=== PATIENT | female | born 1960 | race African-American/Black ===

== ENCOUNTER 2018-08-12 05:58 | Day surgery (SDC) | payer MEDICAID, MEDICARE ==
--- NOTE | 2018-08-09 10:42 | Opthalmology H&P ---
Ophthalmology H&P H&P Chief Complaint: decreased vision in right eye HPI Vision Affects Ability to: read, manage personal affairs, other HPI Narrative Blurry Vision Exam Visual Acuity: OD 20/125 OS 20/25 Tension: OD 16 OS 19 Eye Exam: normal OU: external exam, palpebral fissure-width, marginal reflex distance, levator function, corneas, anterior chambers, fundus exam; findings: lens - NS Cataract OU Assessment/Plan Treatment Plan: cataract extraction w/ lens implant Goals of Treatment: improvement of vision, enhance quality of life Attestation Attestation The risks and benefits of the surgery as well as alternative procedures were explained to the patient in detail. Benjamin Luke MD Aug 09, 2018 10:42
--- NOTE | 2018-08-09 10:43 | Pre-Procedure Note/Attestation ---
Pre-Procedure Note/Attestation Complete Prior to Procedure Planned Procedure: right Procedure Narrative: Cataract Extraction With Intraocular Lens Implant Right Eye Indications for Procedure Pre-Operative Diagnosis: Nuclear Sclerotic Cataract Right Eye Attestation I attest that I discussed the nature of the procedure; its benefits; risks and complications; and alternatives (and the risks and benefits of such alternatives ), prior to the procedure, with the patient (or the patient's legal client care representative). I attest that, if there was a reasonable possibility of needing a blood transfusion, the patient (or the patient's legal client care representative) was given the [facility] standardized written summary, pursuant to the Javi Kiah Blood Safety Act ([place] Health and Safety Code # 1645, as amended). I attest that I re-evaluated the patient just prior to the surgery and that there has been no change in the patient's H&P, except as documented below: Benjamin Luke MD Aug 09, 2018 10:43
[~2018-08-12] VITALS: Ht 144.8 cm; Wt 45.4 kg
[2018-08-12] VITALS (11 sets, daily range): BP systolic 107–151; BP diastolic 58–85
[2018-08-12] MEDS ORDERED: Dexamethasone 4mg/ml vial ONE (07:00)
[2018-08-12] MEDS ORDERED: Maxitrol Opth Oint 3.5gm ONE (07:00)
[2018-08-12] MEDS ORDERED: Pilocarpine 1% Opth 15ml Soln ONE (07:00)
[2018-08-12] MEDS ORDERED: Tetracaine 0.5% Opth 4ml Soln RIGHT EYE ONE (07:00)
[2018-08-12] MEDS ORDERED: Proparacaine 0.5% Opth Soln 15ml RIGHT EYE ONE (07:00)
[2018-08-12] MEDS ORDERED: Pred Forte 1% Opth Susp 1ml ONE (07:00)
[2018-08-12] MEDS ORDERED: Akten 3.5% 1ml Btl RIGHT EYE ONE (07:00)
[2018-08-12] MEDS: Tobramycin Op Soln 0.3% 5ml RIGHT EYE SCH ×3 (07:47→08:03)
[2018-08-12] MEDS: Tropicamide 1% Opth 15ml Soln RIGHT EYE SCH ×3 (07:47→08:03)
[2018-08-12] MEDS: Phenylephrine 10% Opth Soln 5ml RIGHT EYE SCH ×3 (07:47→08:03)
[2018-08-12] MEDS: Diclofenac Sod 0.1% Op Soln RIGHT EYE SCH ×3 (07:47→08:03)
[2018-08-12] MEDS: Cyclopentolate 1% Opth Sol 2ml RIGHT EYE SCH ×3 (07:47→08:03)
[2018-08-12] MEDS ORDERED: ATORVASTATIN CA20 MG ORAL (08:02)
[2018-08-12] MEDS ORDERED: BASAGLAR SQ (08:02)
[2018-08-12] MEDS ORDERED: ASPIR 8181 MG ORAL (08:02)
[2018-08-12] MEDS ORDERED: JANUVIA25 MG ORAL (08:02)
[2018-08-12] MEDS ORDERED: LISINOPRIL10 MG ORAL (08:02)
[2018-08-12] MEDS ORDERED: GLIMEPIRIDE1 MG ORAL (08:02)
[2018-08-12] MEDS ORDERED: METOCLOPRAMIDE H5 M1 ORAL (08:02)
[2018-08-12] MEDS ORDERED: BSS 500ml btl ONE (08:27)
[2018-08-12] MEDS ORDERED: BSS 15ml BTL ONE (08:27)
[2018-08-12] MEDS ORDERED: Povidone-Iodine 5% opth solution ONE (08:27)
[2018-08-12] MEDS ORDERED: Sodium Hyaluronate 14 mg/ml 0.85ml ONE (08:27)
[2018-08-12] MEDS ORDERED: LR 1000ml 1,000 ML IVLG SCH (08:48)
--- NOTE | 2018-08-12 08:48 | Anethesia Preoperative Eval ---
Anesthesia Pre-op PMH/ROS General Date of Evaluation: Aug 12, 2018 Anesthesiologist: Bebo ASA Score: ASA 2 Mallampati Score Class I : Soft palate, uvula, fauces, pillars visible Class II: Soft palate, uvula, fauces visible Class III: Soft palate, base of uvula visible Class IV: Only hard plate visible Mallampati Classification: Class II Surgeon: Marly Diagnosis: Right cataract Surgical Procedure: Right cataract extraction with IOL Anesthesia History: none Family History: no anesthesia problems Allergies: Coded Allergies: No Known Allergies (Unverified , 08/12/18) Medications: see eMAR Patient NPO?: Yes NPO Date: Aug 11, 2018 NPO Time: 22:00 Past Medical History Cardiovascular: Reports: HTN, other - HLD; Denies: CAD, LA, valve dz, arrhythmia Pulmonary: Denies: asthma, COPD, PHUONG, other Gastrointestinal/Genitourinary: Denies: GERD, CRI, ESRD, other Neurologic/Psychiatric: Denies: dementia, CVA, depression/anxiety, TIA, other Endocrine: Reports: DM; Denies: hypothyroidism, steroids, other HEENT: Reports: cataract (L), cataract (R); Denies: glaucoma, HOOPA (L), HOOPA (R), other Hematology/Immune: Denies: anemia, DVT, bleeding disorder, other Musculoskeletal/Integumentary: Denies: OA, RA, DJD, DDD, edema, other PSxH Narrative: Right THR, right eye sx, left knee arthroscopy Anesthesia Pre-op Phys. Exam Physician Exam Last Vital Signs Date Time Temp Pulse Resp B/P (MAP) Pulse Ox O2 Delivery O2 Flow Rate FiO2 08/12/18 07:49 Room Air 08/12/18 07:45 97.0 78 16 151/78 100 Constitutional: NAD Cardiovascular: RRR Respiratory: CTA Airway Exam Mallampati Score: Class I MO: full ROM: full Anesthesia Pre-op A/P Labs see chart Studies Pre-op Studies: EKG - sr Risk Assessment & Plan Assessment: ASA II Plan: MAC Status Change Before Surgery: No Pre-Antibiotics Drug: N/A Jazmín Clark MD Aug 12, 2018 08:48
[2018-08-12] MEDS ORDERED: DiphenhydrAMINE 50mg/ml Inj IVP PRN (09:00)
[2018-08-12] MEDS ORDERED: LR 1000ml ONE (09:15)
[2018-08-12] MEDS ORDERED: Lidocaine 1% MPF 10mg/ml 5ml ONE (09:15)
--- NOTE | 2018-08-12 10:03 | Immediate Post-Op Evaluation ---
Immediate Post-Op Evalulation Immediate Post-Op Evalulation Procedure: Right cataract extraction with IOL Date of Evaluation: Aug 12, 2018 Time of Evaluation: 10:05 IV Fluids: 400 Blood Products: 0 Estimated Blood Loss: 0 Urinary Output: 0 Blood Pressure Systolic: 142 Blood Pressure Diastolic: 85 Pulse Rate: 88 Respiratory Rate: 16 O2 Sat by Pulse Oximetry: 99 Temperature (Fahrenheit): 97.7 Pain Score (1-10): 0 Nausea: No Vomiting: No Complications 0 Patient Status: awake, reacts, patent, none Hydration Status: adequate Drug: N/A Jazmín Clark MD Aug 12, 2018 10:03
--- NOTE | 2018-08-12 10:04 | 48 Hour Post Anesthesia Eval ---
Post Anesthesia Evaluation Procedure: Right cataract extraction with IOL Date of Evaluation: Aug 12, 2018 Airway: patent Nausea: No Vomiting: No Pain Intensity: 0 Hydration Status: adequate Cardiopulmonary Status: at baseline Mental Status/LOC: patient returned to baseline Post-Anesthesia Complications: 0 Follow-up care needed: ready to discharge Jazmín Clark MD Aug 12, 2018 10:04
--- NOTE | 2018-08-13 12:47 | Brief Operative Note ---
Immediate Post Operative Note Operative Note Chief Complaint: blurry vision Pre-op Diagnosis: Nuclear Sclerotic Cataract Right Eye Procedure: Phaco with IOL Post-op Diagnosis: Pseudophakia Post-op Diagnosis: same as pre-op Findings: consistent w/pre-op dx studies Surgeon: Marly Anesthesiologist: Jason Anesthesia: MAC Specimen: none Complications: none Condition: stable Fluids: LR Estimated Blood Loss: none Drains: none Implant(s) used?: Yes Benjamin Luke MD Aug 13, 2018 12:47
--- NOTE | 2018-08-13 12:48 | Operative Note - PDOC ---
Operative Note Operative Note Date of Operation/Procedure: Aug 12, 2018 Chief Complaint: blurry vision Pre-op Diagnosis: Nuclear Sclerotic Cataract Right Eye Procedure: Phaco with IOL Post-op Diagnosis: Pseudophakia Post-op Diagnosis: same as pre-op Operative Findings: consistent w/pre-op dx studies Surgeon: Marly Anesthesiologist: Jason Anesthesia: MAC Specimen: none Complications: none Condition: stable Fluids: LR Estimated Blood Loss: none Drains: none Implant(s) used?: Yes Indications for Procedure cataract Description of Procedure This patient has been complaining visually significant cataract in the affected eye with the best corrected visual acuity under moderate glare conditions worse. The patient complains of difficulties with glare in performing activities of daily living and wants to manage personal affairs with comfort and accuracy and see well enough to move with safety at home and outdoors. The risks, benefits and alternatives of the procedure were discussed with the patient in the office prior to scheduling surgery. All questions from the patient were answered after the surgical procedure was explained in detail. The risks of the procedure as explained to the patient include, but are not limited to, pain, infection, bleeding, loss of vision, retinal detachment, need for further surgery, loss of lens nucleus, double vision, etc. Alternative procedures were discussed which include, to do nothing or seek a second opinion. Informed consent for this procedure was obtained from the patient. The patient was referred to a primary care physician for a cardiopulmonary clearance prior to surgery, after proper evaluation was done patient was properly scheduled for outpatient surgery. The patient was brought to the operating room where the anesthesiologist established I.V. lines and cardiac monitoring leads. Mild intravenous sedation was administered. The patient was then prepared with a 5% solution of povidone -iodine to the conjunctival fornix and lashes, and a 5% solution of povidone- iodine to the lids and periorbital skin. The patient was then draped in the usual sterile fashion. A lid speculum was then placed in the operative eye. A keratome blade was then used to create a biplanar incision into the anterior chamber. Viscoelastics was then instilled into the anterior chamber. A capsulorrhexis was then fashioned with an utrata forceps. BSS and a cannula were then used to hydrodissect and hydro delineate the lens. Paracentesis incision was made at 3 o'clock with sharp blade. The phacoemulsification unit, after being properly adjusted and tested, was then used to emulsify the nucleus followed by residual cortical material being aspirated with the irrigation and aspiration unit. Healon was then instilled into the anterior chamber. The corneal wound was then enlarged to the size of the optic with the satish keratome blade. The intraocular lens was then inspected for right power and size and thought to be satisfactory. Then the lens was gently placed in the capsular bag. Positioning within the capsular bag was confirmed by direct visualization. Optic centration was accomplished with a Sinskey hook. Viscoelastics was removed from the anterior chamber using the irrigation and aspiration unit. The corneal wound was then tested for leaks and none were found. The lid speculum were then removed. Sponge and needle counts were correct. An eye patch and shield were placed over the operative eye. The patient was taken to the recovery room in stable condition. There were no complications. The patient tolerated the procedure well. The patient was then transferred to the ambulatory surgery unit in stable and satisfactory condition , was given detailed written instructions and asked to follow up in the office the next day. Benjamin Luke MD Aug 13, 2018 12:48
== END 2018-08-12 11:40 | disposition home or self-care (01) ==
LOC: SUR 05:58
DX: H25.11 Age-related nuclear cataract, right eye (principal); Z79.82 Long term (current) use of aspirin; E11.9 Type 2 diabetes mellitus without complications; I10 Essential (primary) hypertension; Z96.652 Presence of left artificial knee joint; Z96.641 Presence of right artificial hip joint; Z79.4 Long term (current) use of insulin; D50.9 Iron deficiency anemia, unspecified; R74.8 Abnormal levels of other serum enzymes; R73.09 Other abnormal glucose; E78.5 Hyperlipidemia, unspecified
CPT/HCPCS: 66984; 82962; J1100; J3370; V2632; Z7512; 94003; 94150